=== PATIENT | female | born 1980 | race Caucasian/White ===

== ENCOUNTER → 2021-06-24 | Day surgery (SDC) | payer OTHER ==
[~2021-06-24] VITALS: Ht 162.6 cm; Wt 77.1 kg
[~2021-06-24] MED LIST: ASPIRIN EC81 MG PO; FLUTICASONE PRO16 GM; PRILOSEC20 MG PO
[2021-06-24 08:25] LABS: HCG (URINE) SCREEN NEGATIVE (NEGATIVE)
[2021-06-24 08:46] LABS: HCT 44.3 % (37.0-47.0); HGB 14.4 g/dl (12.5-16.0); MCH 30.4 pg (25.0-31.0); MCHC 32.5 g/dL (32.0-36.0); MCV 93.7 fL (78.0-100.0); MPV 9.6 fL (6.0-9.5); RBC 4.73 M/uL (4.20-5.40); RDW 12.6 % (11.5-14.0); WBC 7.6 K/uL (4.0-10.5)
[2021-06-24 09:00] LABS: ALBUMIN 3.6 g/dL (3.4-5.0); BILIRUBIN - TOTAL 0.3 mg/dL (0.2-1.0); BUN/CREAT RATIO (CALC) 20.8 RATIO; CREATININE 0.77 mg/dL (0.51-0.95); GLOBULIN (CALCULATION) 4.5 g/dL; POTASSIUM 4.3 mmol/L (3.5-5.1); TOTAL PROTEIN 8.1 g/dL (6.4-8.2)
== END | disposition home or self-care (01) ==
LOC: FAS 08:02
PROVIDERS: Surgery
DX: D75.839 Thrombocytosis, unspecified (principal); Z79.82 Long term (current) use of aspirin
CPT/HCPCS: 36415; 80053; 84703; J1644; J2250; J2370; J7120